=== PATIENT | male | born 1955 | race Caucasian/White ===

== ENCOUNTER 2017-02-17 09:24 | Day surgery (SDC) | payer OTHER ==
[~2017-02-17] VITALS: Ht 180.3 cm; Wt 70.4 kg
[~2017-02-17 09:24] MED LIST: RINGERS SOLUTION,LACTATED 1,000 ML IV ONE
[2017-02-17] MEDS ORDERED: PROPOFOL 1% 20 ML VIAL IVP ONE (09:25)
[2017-02-17] MEDS ORDERED: KETOROLAC TROMETHAMINE 60 MG/2 ML VIAL IM ONE (09:25)
[2017-02-17] MEDS ORDERED: LIDOCAINE HCL/PF 2% 5 ML VIAL IM ONE (09:25)
[2017-02-17] MEDS ORDERED: METOPROLOL TARTRATE 5 MG/5 ML VIAL IVP ONE (09:25)
[2017-02-17] MEDS ORDERED: DEXAMETHASONE SOD PHOS 4 MG/ML VIAL IVP ONE (09:25)
[2017-02-17] MEDS ORDERED: MIDAZOLAM HCL 2 MG/2 ML VIAL IVP ONE (09:25)
[2017-02-17] MEDS ORDERED: FentaNYL CITRATE-PF 100 MCG/2 ML VIAL IVP ONE (09:25)
[2017-02-17] MEDS ORDERED: ONDANSETRON HCL 4 MG/2 ML VIAL IVP ONE (09:25)
[2017-02-17] MEDS ORDERED: LIDOCAINE HCL/PF 1% 30 ML VIAL ONE (11:12)
[2017-02-17] MEDS ORDERED: BUPIVACAINE HCL/PF 0.5% 30 ML VIAL ONE (11:12)
[2017-02-17] MEDS ORDERED: MEPERIDINE-PF 25 MG/ML SYRINGE IVP PRN (11:15)
[2017-02-17] MEDS ORDERED: FentaNYL CITRATE-PF 100 MCG/2 ML VIAL IVP PRN (11:15)
[2017-02-17] MEDS ORDERED: HYDROmorphone 2 MG/ML SYRINGE IVP PRN (11:15)
[2017-02-17] MEDS ORDERED: GUM MASTIC/STORAX/MSAL/ALCOHOL LIQUID 0.67 ML VIAL TP ONE (11:38)
[2017-02-17] MEDS ORDERED: RINGERS SOLUTION,LACTATED 500 ML IV ONE (12:04)
[2017-02-17] MEDS ORDERED: OXYGEN THERAPY IH SCH (20:00)
== END 2017-02-17 13:35 | disposition home or self-care (01) ==
LOC: SURGERY 09:24
PROVIDERS: ATTEND Orthopaedic Surgery
DX: S86.311A Strain of muscle(s) and tendon(s) of peroneal muscle group at lower leg level, right leg, initial encounter (principal); Z90.49 Acquired absence of other specified parts of digestive tract; X58.XXXA Exposure to other specified factors, initial encounter; Y93.9 Activity, unspecified; Y92.9 Unspecified place or not applicable
CPT/HCPCS: 28200; J0690; J1100; J1885; J2250; J2405; J2704; J3010; J3490 ×4; J7120 ×2